=== PATIENT | female | born 1960 | race African-American/Black ===

== ENCOUNTER 2018-10-14 07:59 | Day surgery (SDC) | payer MEDICAID ==
[~2018-10-14] VITALS: Ht 160 cm; Wt 72.6 kg
[2018-10-14] VITALS (8 sets, daily range): BP systolic 115–143; BP diastolic 71–83
--- NOTE | 2018-10-14 07:08 | Anethesia Preoperative Eval ---
Anesthesia Pre-op PMH/ROS General Date of Evaluation: Oct 14, 2018 Anesthesiologist: Felipe ASA Score: ASA 2 Mallampati Score Class I : Soft palate, uvula, fauces, pillars visible Class II: Soft palate, uvula, fauces visible Class III: Soft palate, base of uvula visible Class IV: Only hard plate visible Mallampati Classification: Class III Surgeon: Shaji Diagnosis: Anemia Surgical Procedure: EGD and Colonoscopy Anesthesia History: none Family History: no anesthesia problems Allergies: Coded Allergies: No Known Allergies (Unverified , 08/17/15) Medications: see eMAR Patient NPO?: Yes NPO Date: Oct 13, 2018 NPO Time: 22:00 Past Medical History Cardiovascular: Reports: HTN; Denies: CAD, AL, valve dz, arrhythmia, other Pulmonary: Denies: asthma, COPD, MELISA, other Gastrointestinal/Genitourinary: Reports: GERD - gastritis, other - diverticulosis, hiatal hernia; Denies: CRI, ESRD Neurologic/Psychiatric: Denies: dementia, CVA, depression/anxiety, TIA, other Endocrine: Denies: DM, hypothyroidism, steroids, other HEENT: Denies: cataract (L), cataract (R), glaucoma, BARROW (L), BARROW (R), other Hematology/Immune: Reports: anemia - chronic; Denies: DVT, bleeding disorder, other Musculoskeletal/Integumentary: Denies: OA, RA, DJD, DDD, edema, other PSxH Narrative: T&A, appy, c/s, BTL, right wrist ORIF Anesthesia Pre-op Phys. Exam Physician Exam see chart Constitutional: NAD Cardiovascular: RRR Respiratory: CTA Airway Exam Mallampati Score: Class III MO: limited ROM: limited Anesthesia Pre-op A/P Labs see chart Studies Pre-op Studies: EKG - sr Risk Assessment & Plan Assessment: ASA II Plan: MAC Status Change Before Surgery: No Pre-Antibiotics Drug: N/A Josie Bolaños MD Oct 14, 2018 07:08
[~2018-10-14 07:59] MED LIST: BIOTIN2500 MCG PO; DEXILANT60 MG ORAL; DiphenhydrAMINE 50mg/ml Inj IVP PRN; IRON325 M1 PO; LOTREL 10-20 M1 EACH ORAL; LR 1000ml 1,000 ML IVLG SCH; VIT D PO; VIT E PO
--- NOTE | 2018-10-14 08:53 | NUR ---
IV fluids started by Marcella Mondragon RN and infusing well to right hand.
[2018-10-14] MEDS ORDERED: Propofol 200mg/20ml IV ONE (10:30)
[2018-10-14] MEDS ORDERED: Lidocaine 1% MPF 10mg/ml 5ml ONE (10:30)
--- NOTE | 2018-10-14 10:34 | Pre-Procedure Note/Attestation ---
Pre-Procedure Note/Attestation Complete Prior to Procedure Planned Procedure: not applicable Procedure Narrative: colonoscopy Indications for Procedure Pre-Operative Diagnosis: screening colon Attestation I attest that I discussed the nature of the procedure; its benefits; risks and complications; and alternatives (and the risks and benefits of such alternatives ), prior to the procedure, with the patient (or the patient's legal security representative). I attest that, if there was a reasonable possibility of needing a blood transfusion, the patient (or the patient's legal security representative) was given the [facility] standardized written summary, pursuant to the [place] Blood Safety Act ([place] Health and Safety Code # 1645, as amended). I attest that I re-evaluated the patient just prior to the surgery and that there has been no change in the patient's H&P, except as documented below: Alexis Girard MD Oct 14, 2018 10:34
--- NOTE | 2018-10-14 10:35 | Short Stay Surgery H&P ---
History of Present Illness History of Present Illness Chief Complaint see recent consult note HPI Rosa Roldan is a 57 year old female who was admitted on for Colon Screening Patient History Allergies: Coded Allergies: No Known Allergies (Unverified , 08/17/15) Relevant Family History: Polyps in the colon Medication History Scheduled Amlodipine-Benazepril 10-20 Mg* (Lotrel 10-20 Mg Capsule*), 1 CAP ORAL DAILY, ( Reported) Biotin (Biotin), 5,000 MCG PO DAILY, (Reported) Ferrous Sulfate (Iron), 325 MG PO DAILY, (Reported) [Vit D], 1 TAB PO DAILY, (Reported) [Vit E], 1 TAB PO DAILY, (Reported) Discontinued Medications Dexlansoprazole (Dexilant), 60 MG ORAL DAILY, (Reported) Discontinued Reason: Therapy completed Physical Exam Vital Signs Last Vital Signs Date Time Temp Pulse Resp B/P (MAP) Pulse Ox O2 Delivery O2 Flow Rate FiO2 10/14/18 08:48 Room Air 10/14/18 08:36 97.8 69 18 143/83 95 Plan Attestation Are the patient's medical conditions optimized for surgery? Alexis Girard MD Oct 14, 2018 10:35
--- NOTE | 2018-10-14 10:37 | Pre-Procedure Note/Attestation ---
Pre-Procedure Note/Attestation Complete Prior to Procedure Planned Procedure: not applicable Procedure Narrative: egd Indications for Procedure Pre-Operative Diagnosis: GERD Attestation I attest that I discussed the nature of the procedure; its benefits; risks and complications; and alternatives (and the risks and benefits of such alternatives ), prior to the procedure, with the patient (or the patient's legal sales representative facility services). I attest that, if there was a reasonable possibility of needing a blood transfusion, the patient (or the patient's legal sales representative facility services) was given the [facility] standardized written summary, pursuant to the [place] Blood Safety Act ([place] Health and Safety Code # 1645, as amended). I attest that I re-evaluated the patient just prior to the surgery and that there has been no change in the patient's H&P, except as documented below: Alexis Girard MD Oct 14, 2018 10:37
--- NOTE | 2018-10-14 11:03 | Endoscopy Procedure Note ---
Endoscopy Procedure Note General Indication for Procedure: screening colon, GERD Procedures Performed: EGD, colonoscopy Operative Findings/Diagnosis: gastritis, diverticulosis Specimen: yes Pt Tolerated Procedure Well: Yes Estimated Blood Loss: none Anesthesia Anesthesiologist: britta Anesthesia: MAC Inserted Devices Implant(s) used?: No Quality Quality of Bowel Preparation: Good Did scope reach the cecum?: Yes Was there any complications?: No GI Core Measures 50 yrs or older w/o bx or poly: No 10yrs. F/U recommended: Yes If not recommended, why?: Above average risk 18 years or older w/prev. colo: Yes <3yrs. since last colonoscopy: No Alexis Girard MD Oct 14, 2018 11:03
--- NOTE | 2018-10-14 11:12 | Immediate Post-Op Evaluation ---
Immediate Post-Op Evalulation Immediate Post-Op Evalulation Procedure: EGd and colonoscopy Date of Evaluation: Oct 14, 2018 Time of Evaluation: 11:13 IV Fluids: 500 Blood Products: 0 Estimated Blood Loss: 0 Urinary Output: 0 Blood Pressure Systolic: 120 Blood Pressure Diastolic: 71 Pulse Rate: 69 Respiratory Rate: 16 O2 Sat by Pulse Oximetry: 99 Temperature (Fahrenheit): 97.8 Pain Score (1-10): 0 Nausea: No Vomiting: No Complications 0 Patient Status: awake, reacts, none Hydration Status: adequate Drug: N/A Josie Bolaños MD Oct 14, 2018 11:12
--- NOTE | 2018-10-14 11:13 | 48 Hour Post Anesthesia Eval ---
Post Anesthesia Evaluation Procedure: EGd and colonoscopy Date of Evaluation: Oct 14, 2018 Airway: patent Nausea: No Vomiting: No Hydration Status: adequate Cardiopulmonary Status: at [facility] Mental Status/LOC: patient returned to baseline Post-Anesthesia Complications: 0 Follow-up care needed: ready to discharge Josie Bolaños MD Oct 14, 2018 11:13
--- NOTE | 2018-10-14 17:00 | Procedure Note ---
DATE OF PROCEDURE: 10/14/2018 SURGEON: Alexis Girard M.D. PROCEDURE: Upper endoscopy with biopsy and colonoscopy. ANESTHESIA: Per Dr. Wang. INSTRUMENT: Olympus adult flexible upper endoscope and colonoscope. INDICATION: Screening colonoscopy evaluation, screening colonoscopy and also chronic GERD. REASON FOR PROCEDURE: The procedure, risks, benefits, and possible consequences, including hemorrhage, aspiration, perforation and infection, and alternative treatments, were explained to the patient/legal guardian by Dr. Alexis Girard and the patient/legal guardian understood and accepted these risks. PROCEDURE IN DETAIL: After informed consent was obtained and the patient was adequately sedated, Olympus upper endoscope was advanced from mouth into the second portion of the duodenum. Retroflexion was performed in the stomach. The patient has evidence of diffuse gastritis. Random biopsy from antrum and body was obtained to rule out H. pylori infection. Also, the patient has a few scattered polyps, most probably fundic gland polyps very small and no biopsy was performed. At this time, the upper endoscope was retrieved and the patient was turned over colonoscopy. First rectal exam was performed showed positive for internal hemorrhoids. Then, the scope was advanced from the rectum into the cecum then subcutaneous terminal ileum. Quality of prep was very good. The patient had no obvious polyp seen in this colonoscopy examination. She had some evidence of moderate diverticulosis in the left colon. Retroflexion of rectum showed evidence of medium-sized internal hemorrhoids. SUMMARY OF FINDINGS: 1. Gastritis, status post biopsy. 2. Gastric polyps, most probably fundic gland polyps. 3. Internal hemorrhoids. 4. Diverticulosis. RECOMMENDATIONS: Follow up pathology and treat accordingly. Alexis Girard M.D. DR: SARIAH JOB#: [id number] CC:
--- NOTE | 2018-10-16 12:13 | Cardiology Report ---
APPROVED REPORT EKG Measurement Heart [id number] Normal sinus rhythm Nonspecific T wave abnormality Abnormal ECG
== END 2018-10-14 13:35 | disposition home or self-care (01) ==
LOC: GAS 07:59
DX: Z12.11 Encounter for screening for malignant neoplasm of colon (principal); K21.9 Gastro-esophageal reflux disease without esophagitis; K29.50 Unspecified chronic gastritis without bleeding; K31.7 Polyp of stomach and duodenum; K64.8 Other hemorrhoids; K57.90 Diverticulosis of intestine, part unspecified, without perforation or abscess without bleeding; Z79.899 Other long term (current) drug therapy; I10 Essential (primary) hypertension; Z90.89 Acquired absence of other organs
CPT/HCPCS: 43239; 45378; 93005; J2704; Z7512; 94003; 94150